=== PATIENT | male | born 1945 | race Caucasian/White ===

== ENCOUNTER 2016-11-06 23:11 | Emergency (ER) | payer MEDICARE ==
[~2016-11-06 23:11] MED LIST: AMBIEN DPS5 MG PO; AUGMENTIN875 MG PO; CLEOCIN HCL300 MG PO; CRESTOR10 MG PO; LASIX DPS40 MG PO; LEVAQUIN DPS750 MG PO; MAALOX DPS30 ML PO; MIRALAX PACKET17 GM PO; NORCO 5-325 TA1 EACH PO; OMEGA-3 DPS1000 MG; OMEGA-3 DPS1000 MG PO; PROTONIX40 MG PO; SENOKOT S1 TAB PO; TYLENOL DPS325 MG PO
--- NOTE | 2016-11-09 04:09 | ER ---
ADMIT: 11/06/2016 RM/LOC: ER [facility] MR#: [id number] [address] [facility] [address] [place], [place] [address] JUAN A OSBORN [address] [place] [address] Emergency Room Report SEX: M AGE: 71 : 1945 DATE: 11/06/2016 ADDENDUM: See T-sheet for complete H and P. The patient is a 71-year-old male, who was originally seen by Donnie Cherry, physician medical technician assistant, who involved me with the patient's care after he had initially seen the patient with concern of possible stroke-like symptoms. The patient's primary complaint is he has had some dizziness and trouble walking which has been going on for 3-4 days now. He does not report weakness in any arm or leg and states he only has a slight sensory deficit in an area of his left forearm which sounds like a tingling sensation. On physical exam, the patient had some problems with ataxia of his left upper and left lower extremity, had weakness approximately 3/5 on his left upper and left lower extremity and 5/5 on the right. He had equal reflexes. He did not have any slurred speech but he did report that he felt like his speech seemed a little funny to him. We did go ahead and do a stroke routine workup on the patient, and his CBC and CMP were unremarkable. EKG showed sinus rhythm, rate of 62. Urinalysis showed 1+ ketones, otherwise negative. Chest x-ray showed nothing acute and CT head showed no acute hemorrhage, and there was some stable atrophy and stable small vessel ischemic disease. Based on patient's symptoms, I very strongly encouraged the patient to stay for further workup as I am concerned he had a stroke. Despite my repeated attempts to get the patient to stay and my description of his symptoms and my concerns, he states he is unwilling to stay. As the patient is adamant on going home this evening, I do [facility] and I recommend that he gets a carotid ultrasound, echocardiogram, and possibly an MRI of his brain done as soon as possible. As ADMIT: 11/06/2016 RM/LOC: ER [facility] MR#: [id number] [address] [facility] [address] [place] [id number] JUAN A OSBORN [address] [place] [address] Emergency Room Report SEX: M AGE: 71 : 1945 he is a [facility], I cannot get this set up as an outpatient through our system as there is not a primary care physician to follow up, but he states [facility] the [facility] this [facility] and begin this work[facility]. Again, I reiterated to the patient numerous times that I do not recommend him going home, that I believe he has likely had a stroke and requires further workup, but he is persistent in his decision to go home at this time. I do recommend he begins taking a full strength aspirin daily, and he is told he can return to our emergency department at any point for any concerns. DIAGNOSES: 1. Left-sided weakness. 2. Possible cerebrovascular accident. Cisco Robledo MD/ jh JOB #: [id number] CC: Cisco Robledo MD, Attending Physician [facility] Physician, Family Physician
== END 2016-11-07 01:50 | disposition home or self-care (01) ==
LOC: EDBD 23:11 → ER 23:11
DX: R53.1 Weakness (principal); Z79.899 Other long term (current) drug therapy

== ENCOUNTER 2016-11-26 12:05 | Emergency (ER) | payer MEDICARE ==
--- NOTE | 2016-11-29 09:05 | ER ---
ADMIT: 11/26/2016 RM/LOC: ER [facility] MR#: [id number] [address] [facility] [address] [place], [place] [address] JUAN A OSBORN [address] [place] [address] Emergency Room Report SEX: M AGE: 71 : 1945 DATE: 11/26/2016 TIME: 1205 hours. Please refer to my T-sheet for complete H and P. Briefly, the patient is a 71-year-old who was known well at 1145 hours. He had an episode where he fell down with left-sided weakness. He was picked up by the paramedics, we did call stroke alert. He went directly to CT scan. By the time he gets back, he says he is improving, but admits to the left side feels weak. He immediately says he wants to go home. He has a known history of TIAs in the past. He says he takes an aspirin a day. He said he would continue to take an aspirin a day. Also has a history of reflux and high cholesterol. PHYSICAL EXAMINATION: VITAL SIGNS: His blood pressure is 121/72, pulse 66, respirations 14, temp 98.3, and sat 97%. GENERAL: He is no acute distress. HEENT: Grossly normal. LUNGS: Clear. HEART: Regular. ABDOMEN: Soft. SKIN: No rash. NEURO: He has a mild left facial palsy, has left arm and leg weakness. He has pronator drift on the left. We did the stroke scale, it came out to 5. CT scan of his brain was negative for acute changes. I had long discussion with him about tPA, he refused and his symptoms started improving. His EKG was sinus rhythm, rate 67, no changes. While he was here. His symptoms all completely resolved. 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 He said he wanted to leave. He was given leave against medical advice. Again risks and benefits including worsening symptoms or stroke or fall or even , he understood this and he still wanted to go home. Did not want to wait even for lab results. So we had him sign the AMA form. He was cooperative, he just did not want to stay. ASSESSMENT: 1. Acute transient ischemic attack. He has almost completely resolved now. 2. Leaving against medical advice. PLAN: I told him to return if he changes his mind. Take an aspirin a day. Follow up with the [facility]. Antonio Farley MD/ jh JOB #: [id number] CC: Antonio Farley MD, Attending Physician [facility] Physician, Family Physician
== END 2016-11-26 13:12 | disposition left against medical advice (07) ==
LOC: ER 12:05 → EDBD 12:05 → ER 13:12
DX: G45.9 Transient cerebral ischemic attack, unspecified (principal); G51.0 Bell's palsy; I10 Essential (primary) hypertension; F17.210 Nicotine dependence, cigarettes, uncomplicated; Z90.49 Acquired absence of other specified parts of digestive tract; Z79.899 Other long term (current) drug therapy

== ENCOUNTER 2016-11-26 17:14 | Inpatient (IN) | payer MEDICARE ==
[~2016-11-26] VITALS: Ht 177.8 cm; Wt 72.9 kg
--- NOTE | ~2016-11-26 | ECH ---
Transthoracic Echocardiography Report (TTE) Demographics Patient Name JUAN A OSBORN Date of Study 11/27/2016 RAY Patient Number [id number] Visit Number [id number] Date of 1945 Room Number 425 Accession Number [id number] Gender Male Age 71 year(s) Referring Liban Jones MD Equity Structurer Karen Ryder Physician RDCS Physician Interpreting Darrell PAN Steel Erector Physician Jax Supervising Ordering Physician Liban Dahl MD/MLP Nurse Stress Lease Analyst Conclusions Contractility Score Summary Normal Left Ventricular contractility was noted. Summary Technically good exam. The estimated left ventricular ejection fraction is 60%. Bubble study was done, there is no evidence for a PFO or ASD. The right atrium is mildly dilated. No significant valvular abnormalities. Recommendation The patient will be given the results of this study by the physician who ordered the exam. Procedure Type of Study TTE procedure:Echo Complete SF. Procedure Date Date: 11/27/2016 Start: 12:00 AM Technical Quality: Good visualization Indications:CVA. Appropriate Use Criteria: 9 Height: 70 inches Weight: 156 pounds BSA: 1.88 m Rhythm: Within normal limits HR: 64 bpm BP: 121/84 mmHg M-Mode/2D Measurements LV Diastolic Dimension: 4.8 cm LV Systolic Dimension: 3.05 cm LV Septum Diastolic: 0.62 cm LV PW Diastolic: 0.85 cm AO Root Dimension: 3.28 cm Cardiac Output: 4.44 l/min LA Dimension: 3.85 cm Cardiac Index: 2.36 l/min*m RV Diastolic Dimension: 3.4 cm LA volume index: 28 ml/m LVOT: 1.78 cm LVOT VTI: 27.91 cm RV Base: 3.4 cm LV Stroke volume: 69.42 ml RV Mid: 2.1 cm LV Stroke volume index: 36.93 ml/m TAPSE: 3.1 cm TDI-S': 17 cm/s Doppler Measurements AV Peak Velocity: 1.6 m/s MV Peak E-Wave: 1.17 m/s AV Peak Gradient: 10.24 mmHg MV Peak A-Wave: 0.94 m/s AV Mean Gradient: 4.9 mmHg MV E/A Ratio: 1.24 LVOT Peak Velocity: 1.32 m/s MV P1/2t: 75.1 msec AV Area (Continuity):2.06 cm MV Deceleration Time: 258.9 msec MV Area (PHT): 2.93 cm PV Peak Velocity: 1 m/s E' Septal Velocity: 0.09 m/s PV Peak Gradient: 3.99 mmHg E' Lateral Velocity: 0.12 m/s A' Septal Velocity: 0.09 m/s A' Lateral Velocity: 0.12 m/s RA Area: 19.45 cm Findings Left Ventricle Normal left ventricle size and function. Diastolic assessment reveals normal relaxation. Right Ventricle Normal right ventricle structure and function. Left Atrium Normal left atrial size. Informed consent was obtained, bubble study was done, there is no evidence for a PFO or ASD. Right Atrium The right atrium is mildly dilated. Mitral Valve Normal mitral valve structure and function. Mild mitral regurgitation by color Doppler. Aortic Valve The aortic valve is mildly sclerotic. Tricuspid Valve Normal tricuspid valve structure and function. Trivial tricuspid regurgitation by color Doppler. Insufficient jet to calculate pulmonary pressures. Pulmonic Valve The pulmonic valve is not well visualized. Pericardial Effusion No evidence of pericardial effusion. Miscellaneous Visualized portions of the aortic root and ascending aorta appear normal in size. Pleural Effusion No evidence of pleural effusion. Contractility Score LV regional wall motion:(0-Non visualized 1-Normal 2-Hypokinesis 3-Akinesis 4-Dyskinesis 5-Aneurysm) Signature
--- NOTE | 2016-11-29 09:05 | ER ---
ADMIT: 11/26/2016 RM/LOC: 425 [facility] MR#: [id number] [address] [facility] [address] [place], [place] [address] JUAN A OSBORN [address] [place] [address] Emergency Room Report SEX: M AGE: 71 : 1945 DATE: 11/26/2016 TIME: 1714 hours. Please refer to my T-sheet for complete H and P. HISTORY OF PRESENT ILLNESS: Briefly, the patient is a 71-year-old who was actually seen by myself today earlier, had dense weakness on his left side that all resolved. He walked up and down the gardner. He left against medical advice. He did not want to wait for the labs at that time. CT at that time was negative. He did state his shoulder was hurting but he did not want an x- ray at that time either. Again, he left AMA. I talked to him about the risk of a stroke. He is a smoker. He has had these before. However, he went home, he went and took a nap for quite some time, woke up, and then went to try to walk, later noticed his left-sided weakness was back but not as pronounced, so came back in as he changed his mind. So, the time of onset of this episode is unknown. PHYSICAL EXAMINATION: VITAL SIGNS: Blood pressure is 139/80, pulse 74, respirations 14, temp 97.9, sat 98%. GENERAL: No acute distress. NEUROLOGIC: Has just a trace of facial palsy on the left, weakness of his left arm and leg, although he can hold it up and not touch the bed. I gave him a total stroke scale of 4. EMERGENCY DEPARTMENT COURSE: I reviewed his labs from earlier today. I did not repeat them at this time. I did repeat the EKG. It was sinus rhythm, rate 71, nonspecific changes. His blood sugar was 100. His vital signs were stable. I talked to Dr. Louie as the patient refused to be transferred to [place]. He will be admitted here for further evaluation and will need an MRI. ASSESSMENT: 1. Left-sided weakness. 2. Episodes of crescendoing today with a known risk factor of nicotine abuse. PLAN: Admit to the hospital. Antonio Farley MD/ jh JOB #: [id number] CC: Chet Chirinos MD, Attending Physician [facility] Physician, Family Physician
--- NOTE | 2016-11-29 09:30 | HP ---
ADMIT: 11/26/2016 RM/LOC: 425 [facility] MR#: [id number] [address] [facility] [address] [place], [place] [address] JUAN A OSBORN [address] [place] [address] History and Physical SEX: M AGE: 71 : 1945 DATE OF SERVICE: 11/26/2016 HISTORY OF PRESENT ILLNESS: Mr. Osborn is a 71-year-old man, who has a past medical history significant for tobacco abuse, hyperlipidemia, history of acid reflux disease, insomnia, depression, vitamin B12 deficiency, who has had recent history of recurrent TIAs. He comes in today for a left-sided weakness. The patient states that he was in his usual state of health until about mid morning today when he took a long walk. He states that he was walking along and the next thing he recalled, he was on the grass and some bystanders were asking him if he was okay. He states that he knows that his left foot was turned inward and that his right arm was weak. He also noted that he was disoriented and did not know what was going on. He states that about that time, the EMT showed up and he was brought to the [facility] emergency room. Workup there was fairly unremarkable and he left against medical advice because he did not want to be a burden to anybody, so he went home, took a nap on his couch and then went back outside to walk. He states that he walked about 2 blocks when he realized that again he was disoriented and did not know where he was going. He also notes that he had some left foot weakness and that his left foot was dragging. He also stated that his left arm had become numb by that point in time. He decided to return to the [facility] emergency room. At that point in time, he was outside of the TPA window. He tells me that this is his third similar episode within the last several months, and he tells me that in October 2016, he had very similar symptoms with some left-sided weakness. He also tells me that in February of 2016, he also had similar symptoms. Review of systems is also positive for pain in his left shoulder and neck that has been there for several years. Today, he states that it is worse and he wonders if he maybe fell and hit his arm earlier today. He endorses some headache this morning that was left sided and over the temporal bone, this has since resolved. He also states that he had some chest pain and maybe some shortness of breath earlier as well. He is unable to expand further upon this. He does tell me that he also has had some excessive urination recently. No pain with urination. No increased urination. All other review of systems is negative. In the emergency room, the patient had a CT of the head that was negative for any hemorrhagic etiology. He had received approximately 1.25 L of normal saline and 4 mg of IV morphine. REVIEW OF SYSTEMS: A complete review of systems is completed for this encounter and is otherwise unrevealing except for that mentioned in the history of present illness. PAST MEDICAL HISTORY: 1. Tobacco use. 2. Hyperlipidemia, more controlled since starting medications. 3. Heartburn. 4. Depression. 5. Insomnia. PAST SURGICAL HISTORY: States that he had an appendectomy approximately 42 ADMIT: 11/26/2016 RM/LOC: 425 [facility] MR#: [id number] [address] [address] JUAN A OSBORN [address] [place] [address] [address] [place] [address] History and Physical SEX: M AGE: 71 : 1945 years ago and had bilateral cataract removal approximately 10 months ago. Denies any other surgical history. HOME MEDICATIONS: Include: 1. Atorvastatin daily. 2. Ibuprofen as needed for pain. 3. Pantoprazole for heartburn. 4. Escitalopram 30 mg daily. 5. Zolpidem as needed. 6. Melatonin as needed. 7. Gabapentin as needed. 8. Fish oil. 9. Multivitamin. 10.Vitamin B12. ALLERGIES: NO KNOWN MEDICAL ALLERGIES. FAMILY MEDICAL HISTORY: States that his mother passed from Alzheimer's disease at the age of 86. Father had gallbladder disease and a history of CVA then was followed by an aneurysm approximately a year later. He passed from this aneurysm. Has had a brother, who had bladder cancer. Other that this, his 2 other siblings have been healthy. No sisters. He has 2 daughters, one of which has asthma and one of which had a splenectomy while she was in high school. Rest of his children are healthy. SOCIAL HISTORY: He states that he consumes about 1 pack of tobacco per week. He states that he has used for at least 30 years. He states that for some years, he consumed about 1 pack per day. He states that since he is getting older, he has been cutting back on his tobacco consumption. He states that he did have an issue with alcohol use approximately 27 years ago. 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 He states that when he was in college, he did use marijuana, but denies any other illicit drugs. Denies any IV drug use. He is . He is retired. 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 He lives by himself and has a cat, named Shanti. He enjoys walking and reading in his spare time. PHYSICAL EXAMINATION: VITAL SIGNS: On exam, he is afebrile. Heart rate is 64, blood pressure of 132/74, respiratory rate of 17, saturating 98% on room air. GENERAL: He is alert and oriented, in no acute distress. HEENT: Normocephalic and atraumatic. Hearing is intact. He does describe some decreased muscled sound on the left side compared to the right. Extraocular eye movements are intact. Pupils are round and reactive to light and accommodation bilaterally. Moist mucous membranes. Poor dentition. Nose is midline. HEART: Regular rate and rhythm. No murmurs, rubs, or gallops detected. No carotid bruits noted on exam. He does not have any peripheral edema. ADMIT: 11/26/2016 RM/LOC: 425 [facility] MR#: [id number] [address] [facility] [address] [place] [phone] JUAN A [address]ORN[address] [place] [address] History and Physical SEX: M AGE: 71 : 1945 LUNGS: Clear to auscultation bilaterally. No wheezes, rhonchi, or rales. ABDOMEN: Soft, nontender, and mildly distended with adiposity. No organomegaly noted. Does have hypoactive bowel sounds. EXTREMITIES: Warm and well perfused. Atraumatic. NEUROLOGIC: Sense of smell intact. Pupils are equal, round, and reactive to light and accommodation. Extraocular eye movements are intact. Decreased hearing on the left side compared to right with more muscled noise on the left compared to the right. Phonation and palate elevation intact. He does have deviation of his tongue to the right side when instructed to stick it out straight. Trapezius strength is intact and symmetric. He has 3/5 strength of his left upper extremity both at the deltoid as well as the biceps and triceps as well as the forearm and interossei muscle. He also has decreased sensation on the left arm compared to the right. States that it feels more like pressure compared to actual sensation of being touched. Strength on the right upper extremity is 5/5. He does have decreased reflex of the biceps tendon and brachioradialis tendon on the left compared to the right. Moving to the lower extremities, decreased sense of touch on the left compared to the right, he has 3/5 strength on the left and 5/5 on the right. Sensation of the right lower extremity is intact. Reflexes are intact as well. PSYCH: Mood is normal. Affect, his mood is congruent. Speech is intact. He does have some word searching demonstrated when talking to him in conversation. LABORATORY DATA: White count of 5.4, hemoglobin of 14.1, platelets of 160. BMP demonstrates a potassium of 3.5, creatinine of 1.0, blood sugar of 162, calcium of 9.4. Other labs include a pro-BNP of 89 and INR less than 1. IMAGING: EKG demonstrates normal sinus rhythm. CT without contrast of the head demonstrates age-related changes without evidence of intracranial hemorrhage. ASSESSMENT AND PLAN: Mr. Osborn is a 71-year-old man with history of tobacco use, hyperlipidemia, and recent history of transient ischemic attacks. He is admitted today for concern of left-sided weakness for transient ischemic attack versus cerebrovascular accident. His NIH score is 3 in the emergency room. He does have left-sided deficit with strength, sensation, and reflexes. He also has deviation of his tongue to the right side. 1. Left-sided weakness with concern for transient ischemic attack versus cerebrovascular accident. This is his third episode within the last several months. All episodes have been similar in symptoms. Risk factors include hyperlipidemia and tobacco abuse. At this point in time, he has had a CT that demonstrates no hemorrhagic etiology. We will obtain MRI/MRA to evaluate the blood vessels as well as for possible ischemic source. We will also obtain an echocardiogram with bubble study to evaluate for a shunt. He will be placed on telemetry to evaluate for possible arrhythmia that could be the source of his transient ischemic attacks. This will also help to evaluate the possible atrial fibrillation. He tells me that he has had some more excess of urination ADMIT: 11/26/2016 RM/LOC: 425 [facility] MR#: [id number] [facility] [address] JUAN A OSBORN [address] [facility] [address] [place] [address] History and Physical SEX: M AGE: 71 : 1945 and so we will check hemoglobin A1c as this would also be a risk factor for strokes. He also has a family history of strokes within his father who passed of one related to an aneurysm. We will continue his statin as well as start him on aspirin. His blood pressure is under a good control at this point in time, however, if he were noted to have systolic blood pressure greater than 160, then we would think about starting him on hydralazine 5 mg IV as needed for blood pressure greater than 160 systolic every 6 hours. We will also obtain a lipid panel on him to evaluate for control of his cholesterol with his current regimen of atorvastatin. PT and OT will be consulted for assessment as well as assistance with possible rehabilitation. He also will have a speech and bedside swallow evaluation by nursing staff before being given a diet. While he is n.p.o., he will be placed on maintenance fluids with a goal of 30 mL/kg per 24-hour period. 2. Left shoulder pain. He states that he has had this for several years, however, today it is worse. We will first try treating it with some Jay as well as Tylenol and if it is very severe, then treat it with IV morphine. If it does not improve with time, then we will consider imaging of that left shoulder. 3. Tobacco abuse. We will start him on a nicotine patch of 14 mg per day. We will have Social Work talk to him about tobacco cessation. We will offer him resources on discharge with regard to tobacco cessation. 4. Hyperlipidemia. We will continue the Crestor and check a lipid panel in the morning. 5. Esophageal reflux disease. We will continue the pantoprazole. 6. Insomnia. He can be placed on Zolpidem and melatonin as needed while he is here. 7. Depression. We will continue his escitalopram 30 mg daily. This will be restarted in the morning. 8. DVT prophylaxis. We will place him on Lovenox 40 mg subcutaneously daily. 9. Respiratory prophylaxis. Incentive spirometry. Celsa Owusu MD Resident / Hesham Louie MD / jh JOB #: [id number] CC: Chet Chirinos, Attending Physician [facility] Physician, Family Physician
[2016-11-29] MEDS ORDERED: LIPITOR80 MG PO (14:14)
[2016-11-29] MEDS ORDERED: LEXAPRO DPS20 MG PO (14:14)
[2016-11-29] MEDS ORDERED: OMEGA-3 DPS1000 MG PO (14:15)
[2016-11-29] MEDS ORDERED: PANTOPRAZOLE SO40 MG PO (14:15)
[2016-11-29] MEDS ORDERED: AMBIEN DPS5 MG PO (14:15)
[2016-11-29] MEDS ORDERED: ASA325 MG PO (14:15)
[2016-11-29] MEDS ORDERED: VITAMIN B-12500 MCG PO (14:15)
[2016-11-29] MEDS ORDERED: THERA1 EACH PO (14:15)
[2016-11-29] MEDS ORDERED: NICODERM CQ1 EAC1 TP (14:16)
[2016-11-29] MEDS ORDERED: NORCO 7.5-3251 EACH PO (14:16)
[2016-11-29] MEDS ORDERED: XANAX DPS0.25 MG PO (14:16)
--- NOTE | 2016-12-06 09:59 | DS ---
ADMIT: 11/26/2016 RM/LOC: 425 [facility] MR#: [id number] [address] [facility] [address] [place], [place] [address] JUAN A OSBORN [address] [place] [address] Discharge Summary SEX: M AGE: 71 : 1945 ADMISSION DATE: 11/26/2016 DISCHARGE DATE: 11/28/2016 DISCHARGE DIAGNOSES: 1. CVA (cerebrovascular accident) with left-sided upper and lower extremity residual weakness. 2. Tobacco abuse. 3. Hypertension. 4. Hyperlipidemia. 5. Depression/anxiety. 6. Left AC (acromioclavicular) joint arthritis. CONSULTATIONS: None. PROCEDURES: None. REASON FOR ADMISSION: A very pleasant, 71-year-old male presents to [facility] emergency room on the day of admission with complaints of left-sided upper and lower extremity weakness. The patient was outside the lytics window, but this was thought to be a CVA and he was admitted for further evaluation and treatment. For complete details, please see H and P dictated on the day of admission. HOSPITAL COURSE: The patient was followed closely on telemetry. Underwent echo. MRI, MRA, and evaluation of the carotids. He did have some persistent deficit of that left upper extremity, although it improved. There was no acute infarct noted on his MRI or his initial CT. He was noted to be in sinus rhythm. No atrial fibrillation was noted. His echo appeared to overall be within normal limits without any PFO. His LDL was elevated, and his cholesterol medicines were titrated. He was continued on his blood pressure medicines. We had a long talk with the patient about tobacco cessation, which he agreed to. He was very anxious throughout his hospital stay. Lexapro that he had been on previously was restarted. He was given small doses of Xanax. The patient also had some left shoulder discomfort, sharp in nature and tenderness over the AC joint. X-rays confirmed AC joint arthritis. He was given pain medication for that and plans were made for outpatient Ortho follow up. He was seen by Physical Therapy, Occupational Therapy, and Speech Therapy. Overall did well with those. Ambulated and ate without difficulty, and with improving symptoms he was thought to be ready for discharge on 11/28. DISCHARGE DIET: Cardiac diet as tolerated. DISCHARGE MEDICATIONS: Found on his discharge medication list. 1. His atorvastatin was increased to 80 mg daily. 2. He was started on antiplatelet agents. ADMIT: 11/26/2016 RM/LOC: 425 [facility] MR#: [id number] [address] [facility] [address] [place] [address] JUAN A OSBORN [address] [place] [address] Discharge Summary SEX: M AGE: 71 : 1945 3. His blood pressures were good. Blood pressure medicines were thought to be stable. 4. He was sent home on a small dose of Xanax for breakthrough symptoms. 5. He was also restarted on his Lexapro. 6. Was given low doses of Lortab for that shoulder pain. FOLLOWUP: He will have followup with his primary care providers at the [facility] in the next 7-10 days. He will have follow up with the orthopedic surgeons at [facility] concerning his left shoulder arthritis in the next couple of weeks as well. Hesham Louie MD/ janis JOB #: [id number] CC: Chet Chirinos MD, Attending Physician [facility] Physician, Family Physician [facility] Physician
== END 2016-11-28 13:47 | disposition home health service (06) | DRG 65 ==
LOC: ER 17:14 → 4PCU 18:48 → EDBD 11-28 13:47
PROVIDERS: ADMIT Internal Medicine
DX: I63.9 Cerebral infarction, unspecified (principal); G81.94 Hemiplegia, unspecified affecting left nondominant side; I10 Essential (primary) hypertension; G47.00 Insomnia, unspecified; F17.210 Nicotine dependence, cigarettes, uncomplicated; F32.9 Major depressive disorder, single episode, unspecified; F41.9 Anxiety disorder, unspecified; M19.012 Primary osteoarthritis, left shoulder; E78.5 Hyperlipidemia, unspecified; K21.9 Gastro-esophageal reflux disease without esophagitis; E53.8 Deficiency of other specified B group vitamins; Z86.73 Personal history of transient ischemic attack (TIA), and cerebral infarction without residual deficits; Z66 Do not resuscitate

== ENCOUNTER 2016-11-29 01:08 | Emergency (ER) | payer MEDICARE ==
[2016-11-29] MEDS ORDERED: LEXAPRO DPS20 MG PO (14:14)
[2016-11-29] MEDS ORDERED: LIPITOR80 MG PO (14:14)
[2016-11-29] MEDS ORDERED: THERA1 EACH PO (14:15)
[2016-11-29] MEDS ORDERED: PANTOPRAZOLE SO40 MG PO (14:15)
[2016-11-29] MEDS ORDERED: OMEGA-3 DPS1000 MG PO (14:15)
[2016-11-29] MEDS ORDERED: VITAMIN B-12500 MCG PO (14:15)
[2016-11-29] MEDS ORDERED: AMBIEN DPS5 MG PO (14:15)
[2016-11-29] MEDS ORDERED: ASA325 MG PO (14:15)
[2016-11-29] MEDS ORDERED: NICODERM CQ1 EAC1 TP (14:16)
[2016-11-29] MEDS ORDERED: NORCO 7.5-3251 EACH PO (14:16)
[2016-11-29] MEDS ORDERED: XANAX DPS0.25 MG PO (14:16)
--- NOTE | 2016-11-29 19:22 | ER ---
ADMIT: 11/29/2016 RM/LOC: ER [facility] MR#: [id number] 26[address] [facility] [address] [place], [place] [address] JUAN A OSBORN [address] [place] [address] Emergency Room Report SEX: M AGE: 71 : 1945 DATE: 11/29/2016 HISTORY OF PRESENT ILLNESS: The patient is a 71-year-old male with a past medical history of anxiety, depression, stroke, came to the ER with chief complaint of feeling anxious and does not know what to do. The patient states for the last few weeks, he was very anxious because he could lose his house and he is struggling with some agency to keep his house. The patient denies any suicidal or homicidal ideation or taking any drugs or medications. The patient states he has been diagnosed with depression, but he prefers not to take any medications. The patient has close followup with the primary doctor. The patient has previous history of stroke and right upper and right lower quadrant some weakness which is residual. The patient denies any recent trauma. PHYSICAL EXAMINATION: VITAL SIGNS: In the ER, vitals are stable. GENERAL: The patient is sitting in bed, cooperative, answering the questions, alert and oriented to person, place, and time. The patient's content of thought is normal. The patient's mood is low, depressed, and affect is congruent, speech is normal. The patient denies any homicidal or suicidal ideation. The patient denies any hallucinations or delusions. HEAD AND NECK: Examination is normal. LUNGS: Clear. HEART: Normal heart sounds. ABDOMEN: Soft. NEUROLOGIC: Motor exam, except for the motor of the upper right and lower right extremity which is 4/5 in strength, the rest of the motor exam is normal. EMERGENCY DEPARTMENT COURSE: The patient has four kids and is in close contact with them. After discussing the case with the patient, he agreed to have some Ativan. The patient received 0.1 mg of Ativan, and I discussed with the patient a few times and I mentioned the importance of the support system and close followup with the primary doctor and possibly followup with the psychiatrist. The patient acknowledged the importance of the issue and agreed with it. The patient states after the Ativan p.o., his anxiety decreased and he was stable to be discharged to home. The patient was advised to follow up with the primary doctor in the coming days. Renny Rice MD/ jh JOB #: [id number] CC: Renny Rice MD, Attending Physician [facility] Physician, Family Physician
== END 2016-11-29 03:25 | disposition home or self-care (01) ==
LOC: ER 01:08 → EDBD 01:08 → ER 03:25
DX: F43.22 Adjustment disorder with anxiety (principal); F32.9 Major depressive disorder, single episode, unspecified; F17.210 Nicotine dependence, cigarettes, uncomplicated; I69.351 Hemiplegia and hemiparesis following cerebral infarction affecting right dominant side; Z90.49 Acquired absence of other specified parts of digestive tract; Z79.899 Other long term (current) drug therapy

== ENCOUNTER 2016-11-29 13:03 | Emergency (ER) | payer MEDICARE ==
[2016-11-29] MEDS ORDERED: LEXAPRO DPS20 MG PO (14:14)
[2016-11-29] MEDS ORDERED: LIPITOR80 MG PO (14:14)
[2016-11-29] MEDS ORDERED: AMBIEN DPS5 MG PO (14:15)
[2016-11-29] MEDS ORDERED: ASA325 MG PO (14:15)
[2016-11-29] MEDS ORDERED: THERA1 EACH PO (14:15)
[2016-11-29] MEDS ORDERED: OMEGA-3 DPS1000 MG PO (14:15)
[2016-11-29] MEDS ORDERED: VITAMIN B-12500 MCG PO (14:15)
[2016-11-29] MEDS ORDERED: PANTOPRAZOLE SO40 MG PO (14:15)
[2016-11-29] MEDS ORDERED: NICODERM CQ1 EAC1 TP (14:16)
[2016-11-29] MEDS ORDERED: XANAX DPS0.25 MG PO (14:16)
[2016-11-29] MEDS ORDERED: NORCO 7.5-3251 EACH PO (14:16)
--- NOTE | 2016-11-30 07:50 | NUR ---
Pt came to floor asking to talk to this [facility]. Pt very anxious about his housing. States he will be evicted by end of the month. Together called Lele at [facility]. She set time to meet with pt to go over concerns. Return call from Liv from [facility] stating pt case has been turned over to attorneys therefore no HC staff can have contact with pt. She would leave a message to explain this situation. Pt returns to hospital reporting the information from [facility]. He is very anxious about his housing. Called and spoke with [place] [facility] and was told to send pt to [facility] to be referred to [facility] for homeless Veterans. Pt was told to take a copy of his eviction notice. Message left for the [facility] worker for veterans program. Encouraged pt to also work with his [place] forensic social worker for ongoing help with this matter. Pt then states he is having returning symptoms of dragging his foot and problems with speach. Notified staff and pt was taken to ER. Spoke with ER MD and explained situation. Called [facility] forensic social worker to see if pt can still be admitted for rehab. They could not take today but asked [place] paperwork faxed and could look at admitting pt either from acute care or home on friday. Pt again encouraged to talk to [facility] for housing with Veterans housing.
--- NOTE | 2016-12-02 08:22 | ER ---
ADMIT: 11/29/2016 RM/LOC: ER [facility] MR#: [id number] [address] [facility] [address] [place], [place] [address] JUAN A OSBORN [address] [place] [address] Emergency Room Report SEX: M AGE: 71 : 1945 DATE: 11/29/2016 TIME: 1303 hours. Please refer to my T-sheet for complete H and P. Briefly, the patient is a 71- year-old who was in seeing social work in the hospital when he said his left arm and leg would not work again. He has been in here several times in the ER for this. There is an anxiety component. The last time he was worked up, left [place], came back with similar symptoms, was admitted. He resolved on his own. I did an MRI, MRA of his head and neck which were essentially normal. He was in the middle of talking to the social worker palliative care when he was frustrated and then he said his left foot was dragging. PHYSICAL EXAM HERE: VITAL SIGNS: Stable. HEENT: Grossly normal. LUNGS: Clear. HEART: Regular. ABDOMEN: Soft. SKIN: No rash. NEURO: He is alert. He is oriented. He is nonsuicidal or homicidal. His left leg and left arm, he says are slightly weak, however, they seemed to be very functional as my exam gives him a 0 on the stroke scale. EMERGENCY ROOM COURSE: Here I gave him Ativan 0.5 p.o. I reviewed his chart. He has had a large workup recently. He is being evicted from his house, he is undergoing a lot of stress. I think that is contributing to his episodes. ASSESSMENT: 1. Anxiety. 2. Left-sided weakness, all resolved here. 3. Social concerns. PLAN: I had Social Work talk in the ER. We are going to allow him be to discharged. Return if worse. [facility] Antonio Farley MD/ jh JOB #: [id number] CC: Antonio Farley MD, Attending Physician [facility] Physician, Family Physician
== END 2016-11-29 14:25 | disposition home or self-care (01) ==
LOC: EDBD 13:03 → ER 13:03
DX: F41.9 Anxiety disorder, unspecified (principal); R53.1 Weakness; F17.210 Nicotine dependence, cigarettes, uncomplicated; F32.9 Major depressive disorder, single episode, unspecified; E78.5 Hyperlipidemia, unspecified; Z90.49 Acquired absence of other specified parts of digestive tract; Z79.82 Long term (current) use of aspirin; Z79.899 Other long term (current) drug therapy

== ENCOUNTER 2016-11-30 16:32 | Emergency (ER) | payer MEDICARE ==
[~2016-11-30 16:32] MED LIST changes: +ASA325 MG PO; +LEXAPRO DPS20 MG PO; +LIPITOR80 MG PO; +NICODERM CQ1 EAC1 TP; +NORCO 7.5-3251 EACH PO; +PANTOPRAZOLE SO40 MG PO; +THERA1 EACH PO; +VITAMIN B-12500 MCG PO; +XANAX DPS0.25 MG PO
--- NOTE | 2016-12-02 13:51 | NUR ---
Received SAD person referral. Pt has [facility]. Pt is seeking services with the [place] mental health staff and has thier contact information. Pt aware he needs to go to [facility] for housing assistance.
--- NOTE | 2016-12-02 15:02 | NUR ---
PT COMES TO HOSPITAL AND ASKS TO MEET WITH SW. SPOKE WITH HIM VIA PHONE. PT HAVING TROUBLES ACCESSING SERVICES THROUGH [facility]. PHONE CALL MADE TO [facility] TO CLARIFY. THEY SUGGEST PT WORK DIRECTLY WITH [facility] SW-[facility]OB [facility] ON [facility]. ATTEMPT TO TALK WITH BOB AND NO ANSWER. SPOKE WITH [facility] SOCIALWORKER. SHE SET UP APPT WITH PT MENTAL HEALTH PROVIDER JAMES MCDERMOTT TODAY. SPOKE WITH PT VIA PHONE, HE AGREES TO GO TO APPT WITH MENTAL HEALTH PROVIDER. EXPLAINED THAT THE [facility] WOULD ALSO ADMIT HIM ON WED IF NECESSARY. PT GIVEN RESOURCE INFORMATION ON [employer] [facility]. AGREES TO CALL AND SET UP APPT WITH BRI MONDRAGON AT [facility] CONTACT INFORMATION PROVIDED.
--- NOTE | 2016-12-04 14:46 | ER ---
ADMIT: 11/30/2016 RM/LOC: ER [facility] MR#: [id number] [address] [facility] [address] [place], [place] [address] JUAN A OSBORN [address] [address] Emergency Room Report SEX: M AGE: 71 : 1945 DATE: 11/30/2016 ADDENDUM: CHIEF COMPLAINT: Questionable syncopal episode. HISTORY OF PRESENT ILLNESS: This is a 71-year-old, who said he was walking twice today and then all of the sudden he woke up on the floor. This happened to him twice, so finally he called 911 and they brought him into the emergency room. Juan A is under a lot of stress lately. He is currently being evicted from his home. There was a question of having TIAs recently. He did have an MRI and MRA that were negative for any acute findings. I did speak with Dr. Farley regarding this patient. In fact, Dr. Farley, went in and saw the patient today and has seen him previously. We decided to order a troponin, EKG, and EtOH. Troponin was normal. His EtOH was 16. I am not for sure if lab had used alcohol wipes, but he denied any alcohol use. EKG was over-read by Dr. Farley as no acute findings. CLINICAL IMPRESSION: 1. Anxiety. 2. Syncopal episode. CHELO Gallardo / Antonio Farley MD / modl JOB #: [id number] CC: Antonio Farley MD, Attending Physician [facility] Physician, Family Physician
== END 2016-11-30 18:55 | disposition home or self-care (01) ==
LOC: ER 16:32 → EDBD 16:32 → ER 18:55
DX: R55 Syncope and collapse (principal); F41.9 Anxiety disorder, unspecified; E03.9 Hypothyroidism, unspecified; F17.210 Nicotine dependence, cigarettes, uncomplicated; F32.9 Major depressive disorder, single episode, unspecified; Z79.82 Long term (current) use of aspirin; Z79.899 Other long term (current) drug therapy; Z86.73 Personal history of transient ischemic attack (TIA), and cerebral infarction without residual deficits; Z90.49 Acquired absence of other specified parts of digestive tract

== ENCOUNTER 2016-12-05 00:40 | Emergency (ER) | payer MEDICARE | END 2016-12-05 01:00 | disposition left against medical advice (07) | LOC: ER 00:40 | DX: Z53.21 Procedure and treatment not carried out due to patient leaving prior to being seen by health care provider (principal) ==

== ENCOUNTER 2016-12-06 23:37 | Emergency (ER) | payer MEDICARE | END 2016-12-06 23:45 | disposition left against medical advice (07) | LOC: ER 23:37 | DX: Z53.21 Procedure and treatment not carried out due to patient leaving prior to being seen by health care provider (principal) ==

== ENCOUNTER 2016-12-09 19:27 | Emergency (ER) | payer MEDICARE ==
--- NOTE | 2016-12-10 06:48 | ER ---
ADMIT: 12/09/2016 RM/LOC: ER [facility] MR#: [id number] [address] [facility] [address] JUAN A OSBORN [address] [address] Emergency Room Report SEX: M AGE: 71 : 1945 DATE: 12/09/2016 The patient is a 71-year-old male with PTSD, depression, anxiety, and insomnia, currently pending homelessness, comes in tonight stating that he just cannot sleep. Due to see mental health GI tomorrow as well as [place] housing social work professor. Exam remarkable for nontoxic, afebrile, cooperative male. Denies suicidal or homicidal ideation or paranoid thinking. Given prazosin 1 mg p.o. in department. Cab ride home. [facility]. Ricardo Vasquez MD/ jh JOB #: [id number] CC: Ricardo Vasquez MD, Attending Physician [facility] Physician, Family Physician . [facility]
== END 2016-12-09 20:45 | disposition home or self-care (01) ==
LOC: ER 19:27
DX: F32.9 Major depressive disorder, single episode, unspecified (principal); F43.10 Post-traumatic stress disorder, unspecified; E78.5 Hyperlipidemia, unspecified; I12.9 Hypertensive chronic kidney disease with stage 1 through stage 4 chronic kidney disease, or unspecified chronic kidney disease; N18.9 Chronic kidney disease, unspecified; F17.210 Nicotine dependence, cigarettes, uncomplicated; Z90.49 Acquired absence of other specified parts of digestive tract; Z86.73 Personal history of transient ischemic attack (TIA), and cerebral infarction without residual deficits

== ENCOUNTER 2016-12-09 23:54 | Emergency (ER) | payer MEDICARE ==
--- NOTE | 2016-12-12 12:45 | ER ---
ADMIT: 12/09/2016 RM/LOC: ER [facility] MR#: [id number] 26[address] [facility] [address] [place], [place] [address] JUAN A OSBORN [address] [facility] [address] [place] [address] Emergency Room Report SEX: M AGE: 71 : 1945 DATE: 12/09/2016 HISTORY OF PRESENT ILLNESS: The patient is a 71-year-old male with his past medical history of depression, anxiety, CVA with residual left upper and left lower extremity weakness, came to the ER with chief complaint of anxiety, and states that he does not know what to do, and I do not want to be homeless, allegedly the patient was recently had a notice to leave his place and he has some difficulty finding new placement and moving, the patient denies using any drugs and also denies any suicidal or homicidal ideation and denies any hallucination or delusions. PHYSICAL EXAMINATION: VITAL SIGNS: In the ER, the patient was mildly tachycardic with a heart rate of 102, was afebrile. GENERAL: Was anxious, kind of flight of speech, the patient denies any trauma and there are no signs of trauma. HEAD AND NECK: Normal. CHEST: Clear bilaterally. ABDOMEN: Soft. NEUROLOGIC: The patient has no tremor, there is no new focal neurologic deficit. The patient received Ativan p.o., the patient was discussed with the patient in detail. He mentioned that he has been following up for the assistance for placement and also for the mental health appointment and also primary care appointment in [place]. The patient's anxiety improved moderately, and the patient was discharged home with a prescription of 10 pills of Ativan 1 mg at night if the patient feels anxious p.r.n. The patient was advised to follow up with the primary doctor. Renny Rice MD/ modl JOB #: [id number] CC: Ricardo Vasquez MD, Attending Physician
== END 2016-12-10 01:30 | disposition home or self-care (01) ==
LOC: ER 23:54
DX: F41.9 Anxiety disorder, unspecified (principal); F17.210 Nicotine dependence, cigarettes, uncomplicated; Z90.49 Acquired absence of other specified parts of digestive tract; Z86.73 Personal history of transient ischemic attack (TIA), and cerebral infarction without residual deficits

== ENCOUNTER 2016-12-15 16:28 | Emergency (ER) | payer MEDICARE ==
--- NOTE | 2016-12-29 15:51 | ER ---
ADMIT: 12/15/2016 RM/LOC: ER [facility] MR#: [id number] 26[address] [facility] [address] [place] [address] JUAN A OSBORN [address] [address] Emergency Room Report SEX: M AGE: 71 : 1945 DATE: 12/15/2016 This is a 71-year-old brought by ambulance because of dizziness and lightheadedness. This individual has been in the Emergency Department 10 times since 27 November with various complaints. 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 However, his lab that was drawn today, alcohol level was 48, glucose salts of 60. Gentleman is excessively depressed and anxious. We attempted to transfer him to the [facility] for his depression and anxiety. The patient refused, he signed an AMA form and subsequently left against medical advice. Richard Arenas MD/ jh JOB #: [id number] CC: Alvarez Middleton MD, Attending Physician [facility] Physician, Family Physician
== END 2016-12-15 18:25 | disposition left against medical advice (07) ==
LOC: ER 16:28
DX: F10.129 Alcohol abuse with intoxication, unspecified (principal); F32.9 Major depressive disorder, single episode, unspecified; E78.5 Hyperlipidemia, unspecified; F17.210 Nicotine dependence, cigarettes, uncomplicated; Z90.49 Acquired absence of other specified parts of digestive tract; Z79.899 Other long term (current) drug therapy; Z79.01 Long term (current) use of anticoagulants

== ENCOUNTER 2016-12-15 18:48 | Emergency (ER) | payer MEDICARE | END 2016-12-15 19:35 | disposition left against medical advice (07) | LOC: ER 18:48 | DX: Z53.21 Procedure and treatment not carried out due to patient leaving prior to being seen by health care provider (principal) ==

== ENCOUNTER 2016-12-18 03:07 | Emergency (ER) | payer MEDICARE ==
--- NOTE | 2016-12-21 13:14 | ER ---
ADMIT: 12/18/2016 RM/LOC: ER [facility] MR#: [id number] 26[address] [facility] [address] [place], [place] [address] JUAN A OSBORN [address] [address] Emergency Room Report SEX: M AGE: 71 : 1945 DATE: 12/18/2016 HISTORY OF PRESENT ILLNESS: The patient is a 71-year-old male with past medical history of CVA with residual of the weakness in the left upper extremity and left lower extremity, was brought to the ER because the patient was in [employer] and allegedly, the patient fell. The patient could not recall what exactly happened, but denies any head trauma or loss of consciousness. The patient denies any chest pain, shortness of breath, abdominal pain, or back pain. The patient has left lateral lower chest pain, which increases with palpation. PHYSICAL EXAMINATION: HEAD AND NECK: There are no signs of trauma. SPINE: Has no midline tenderness or step-offs. CHEST: Clear bilaterally without any crepitation. HEART: Normal heart sounds. The patient has left lower lateral chest mild tenderness. ABDOMEN: Soft. PELVIC: Stable. The rest of the physical examination is noncontributory and negative. EKG with normal sinus rhythm without any ST or T changes or Q-wave or arrhythmia. Chest x-ray did not show any fracture or dislocations. Fingerstick blood sugar was also normal. The patient was discharged to home. Return precautions. Follow up with the primary doctor as needed. With the diagnosis of ground-level fall, left lateral chest contusion. Renny Rice MD/ jh JOB #: [id number] CC: Renny Rice MD, Attending Physician [facility] Physician, Family Physician
== END 2016-12-18 04:25 | disposition home or self-care (01) ==
LOC: ER 03:07
DX: S20.212A Contusion of left front wall of thorax, initial encounter (principal); F17.210 Nicotine dependence, cigarettes, uncomplicated; Z90.49 Acquired absence of other specified parts of digestive tract; W18.30XA Fall on same level, unspecified, initial encounter